=== PATIENT | female | born 1965 | race African-American/Black ===

== ENCOUNTER 2016-08-28 19:19 | Emergency (ER) | payer BC, OTHER ==
[~2016-08-28] VITALS: Ht 170.2 cm; Wt 98.4 kg
[~2016-08-28 19:19] MED LIST: AMARYL4 MG PO; BACTRIM DS TAB1 EACH PO; DICLOFENAC SOD50 MG PO; GLUCOPHAGE1000 MG PO; IBUPROFEN 800800 MG PO; LOPRESSOR25 PO; LOTENSIN HCT 21 EAC1 PO; LOTENSIN40 MG PO; NAPROSYN500 MG PO; NORFLEX100 MG PO; TRAMADOL 50 MG50 MG PO
[2016-08-28] MEDS ORDERED: MOBIC15 MG PO (20:47)
[2016-08-28] MEDS ORDERED: PHENERGAN 25 MG25 M1 PO (20:47)
[2016-08-28] MEDS ORDERED: DELTASONE20 MG PO (20:47)
[2016-08-28 20:52] VITALS: BP 156/72
[2016-08-28] MEDS ORDERED: PROMETHAZI6.25 MG/2 GT (20:56)
== END 2016-08-28 21:01 | disposition home or self-care (01) ==
LOC: ER 19:19
DX: J02.9 Acute pharyngitis, unspecified (principal); J20.8 Acute bronchitis due to other specified organisms; I10 Essential (primary) hypertension